=== PATIENT | male | born 1980 | race Caucasian/White ===

== ENCOUNTER 2024-03-25 12:35 | Emergency (ER) | payer BC, SELFPAY ==
--- NOTE | ~2024-03-25 | XR_ITS ---
EXAMINATION: XR chest 2V DATE: 03/25/2024 13:11 INDICATION: Chest discomfort TECHNIQUE: PA and lateral views of the chest were obtained. COMPARISON: None FINDINGS: The lungs are clear with no focal airspace opacities, pulmonary edema, pleural effusion or pneumothor ax. The cardiomediastinal silhouette is normal. Mild thoracic spondylosis. IMPRESSION: 1. No acute cardiopulmonary disease. Reviewed, dictated and finalized at location B.
--- NOTE | 2024-03-25 12:37 | ED.URI ---
HPI - URI/Sore Throat General Chief Complaint: Upper Respiratory Infection Stated Complaint: Sore Throat/Cough Source: patient and RN notes reviewed Mode of arrival: ambulatory Limitations: no limitations History of Present Illness HPI Narrative: Patient is a 44-year-old male who presents to the [facility] with complaints of right-sided throat pain and chest discomfort. Patient states that he had what possibly was a viral illness 3 weeks ago. He states that he experienced cough and congestion at that time. Denies any known fevers. Patient states that for the past couple weeks he has been dealing with right-sided throat pain. Patient also reports a chest discomfort that occurs on the right side of his chest only when he goes to sit down. He states that this pain is present at time. It is not present with an breathing or coughing, only with positioning and movement. He denies shortness of breath. His respirations are unlabored. He does not appear in any acute distress. Related Data Home Medications Medication Instructions Recorded Confirmed atorvastatin 10 mg tablet 10 mg PO DAILY 03/25/24 03/25/24 Review of Systems Review of Systems: CONSTITUTIONAL: Denies fever, chills, or sweats. EYES: Denies visual changes, redness, or discharge. ENT: Denies otalgia. Reports sore throat. CARDIOVASCULAR: Reports chest pain, but denies palpitations or edema. RESPIRATORY: Denies cough or dyspnea. GASTROINTESTINAL: Denies abdominal pain, nausea, vomiting, or diarrhea. GENITOURINARY: Denies dysuria or hematuria. SKIN: Denies rash or itching. MUSCULOSKELETAL: Denies back pain, joint pain, or myalgia. NEUROLOGIC: Denies headache, numbness, or weakness. Pertinent positives per HPI. PMFSH Comments At the time of my signature, I reviewed and agree with the nursing past medical, surgical, social, and family history. There is no relevant family history pertinent to the patient complaint. Exam Narrative: GENERAL: This is a well-nourished, well-developed patient, in no apparent distress. HEAD: normocephalic, atraumatic. EYES: Sclera clear/white. Vision is grossly intact. EARS: External ears normal, auditory canals clear and without drainage, TMs normal without perforation. Hearing grossly intact. NOSE: External nose normal with no obvious nasal discharge, nares without redness, no rhinorrhea. THROAT: Mucous membranes moist, Oropharyngeal erythema without exudate or ulceration. NECK: Neck supple, non-tender without lymphadenopathy, masses or thyromegaly. CARDIOVASCULAR: Regular rate and rhythm without murmurs, gallops, or rubs. RESPIRATORY: Clear to auscultation. Breath sounds equal bilaterally. No wheezes, rales, or rhonchi. GASTROINTESTINAL: Abdomen soft, non-tender, nondistended. Bowel sounds are active. No hepato-splenomegaly, or palpable masses. No guarding. SKIN: warm, intact with no suspicious lesions or rash, good texture and turgor. NEURO: awake, alert, and oriented to person, place and time. There were no obvious focal neurologic abnormalities. Course Course Level of Care: Express Care Visit Vital Signs Vital signs: Vital Signs Temperature 97.7 F 03/25/24 12:45 Pulse Rate 67 03/25/24 12:45 Respiratory Rate 16 03/25/24 12:45 Blood Pressure 128/75 03/25/24 12:45 Pulse Oximetry 98 03/25/24 12:45 Oxygen Delivery Room Air 03/25/24 12:45 Temperature 97.7 F 03/25/24 12:45 Pulse Rate 67 03/25/24 12:45 Respiratory Rate 16 03/25/24 12:45 Blood Pressure 128/75 03/25/24 12:45 Pulse Oximetry 98 03/25/24 12:45 Oxygen Delivery Room Air 03/25/24 12:45 Reviewed MDM - URI/Sore Throat MDM Narrative Medical decision making narrative: Take steroids as directed. Increase fluids at home. Avoid any and all smoke. May use a humidifier in the bedroom. Increase your Vitamin C. Follow-up with personal physician in 2-5 days. Go to ED immediately with worsening pain. Differential Diagnosis
[2024-03-25 12:45] VITALS: BP 128/75; PULSE 67; RESP 16; TEMP 36.5; O2SAT 98
== END 2024-03-25 13:26 | disposition home or self-care (01) ==
PROVIDERS: Emergency Provider Nurse Practitioner
DX: J20.8 Acute bronchitis due to other specified organisms (principal)
CPT/HCPCS: 71046; 87081; 87880; 99213; G0463

== ENCOUNTER 2024-04-05 09:20 | Emergency (ER) | payer BC, SELFPAY ==
[2024-04-05 09:36] VITALS: BP 116/71; PULSE 64; RESP 16; TEMP 36.6; O2SAT 98
[2024-04-05 09:37] VITALS: BP 116/71; PULSE 64; RESP 16; TEMP 36.6; O2SAT 98
--- NOTE | 2024-04-05 10:04 | ED.NECK ---
HPI - Neck Pain/Injury General Chief Complaint: Neck Pain/Injury Stated Complaint: Pain and Swelling in Lymph Nodes Time Seen by Provider: 04/05/24 10:04 Source: patient Mode of arrival: ambulatory Limitations: no limitations History of Present Illness HPI Narrative: 44-year-old male presents with complaint sore throat, swollen lymph nodes, neck pain. Symptoms for over a week. Was seen at [facility] for same symptoms and tested negative for strep. Was given prednisone with no relief of symptoms. Patient reports that neck pain is worse with movement, sore throat worse with swallowing and talking. Afebrile. States other than the pain he feels fine. All systems reviewed and negative except as noted above. Related Data Home Medications Medication Instructions Recorded Confirmed atorvastatin 10 mg tablet 10 mg PO DAILY 03/25/24 04/05/24 Allergies Allergy/AdvReac Type Severity Reaction Status Date / Time No Known Allergies Allergy Verified 04/05/24 09:36 Review of Systems Review of Systems: CONSTITUTIONAL: Denies fever, chills, or sweats. EYES: Denies visual changes, redness, or discharge. ENT: Denies rhinorrhea, congestion. Reports sore throat. Denies otalgia. CARDIOVASCULAR: Denies chest pain, palpitations, or edema. RESPIRATORY: Denies cough or dyspnea. GASTROINTESTINAL: Denies abdominal pain, nausea, vomiting, or diarrhea. GENITOURINARY: Denies dysuria or hematuria. SKIN: Denies rash or itching. MUSCULOSKELETAL: Denies back pain, joint pain, or myalgia. Reports anterior neck pain. NEUROLOGIC: Denies headache, numbness, or weakness. PSYCHIATRIC: Denies anxiety or depression. All other systems reviewed are negative, except as documented in HPI. PMFSH Comments At time of signature, agree with nursing past medical, surgical, social and family history. There is no relevant family history pertinent to the presenting complaint. Exam Narrative: GENERAL: This is a well-nourished, well-developed patient, in no apparent distress. HEAD: normocephalic, atraumatic. EYES: PERRL. Sclera clear/white. Vision is grossly intact. EARS: External ears normal, auditory canals clear and without drainage, TMs normal without perforation. Hearing grossly intact. NOSE: External nose normal with no obvious nasal discharge, nares without redness, no rhinorrhea. THROAT: Mucous membranes moist, posterior pharynx clear. NECK: Neck supple, with tender anterior cervical lymphadenopathy. No masses or thyromegaly. CARDIOVASCULAR: Regular rate and rhythm without murmurs, gallops, or rubs. RESPIRATORY: Clear to auscultation. Breath sounds equal bilaterally. No wheezes, rales, or rhonchi. GASTROINTESTINAL: Abdomen soft, non-tender, nondistended. Bowel sounds are active. No hepato-splenomegaly, or palpable masses. No guarding. SKIN: warm, Dry, intact with no suspicious lesions or rash, good texture and turgor. NEURO: awake, alert, and oriented to person, place and time. There were no obvious focal neurologic abnormalities. EXTREMITIES: No joint tenderness, effusion, or edema noted. No calf tenderness. Negative Homans sign bilaterally. BACK: Nontender without deformity. No CVA tenderness. Course Course Level of Care: Express Care Visit Vital Signs Vital signs: Vital Signs Temperature 36.6 C 04/05/24 09:36 Pulse Rate 64 04/05/24 09:36 Respiratory Rate 16 04/05/24 09:36 Blood Pressure 116/71 04/05/24 09:36 Pulse Oximetry 98 04/05/24 09:36 Temperature 36.6 C 04/05/24 09:37 Pulse Rate 64 04/05/24 09:37 Respiratory Rate 16 04/05/24 09:37 Blood Pressure 116/71 04/05/24 09:37 Pulse Oximetry 98 04/05/24 09:37 Reviewed MDM - Neck Pain/Injury MDM Narrative Medical decision making narrative: Patient is aware of diagnosis, understands and agrees to treatment plan. Anticipatory guidance given. Patient agrees to follow-up as directed and is aware of reasons to seek care at the emergency department.
== END 2024-04-05 10:27 | disposition home or self-care (01) ==
PROVIDERS: Emergency Provider Nurse Practitioner Family; PCP Family Medicine
DX: R07.0 Pain in throat (principal); R59.1 Generalized enlarged lymph nodes; E78.00 Pure hypercholesterolemia, unspecified
CPT/HCPCS: 36416; 86308; 87070; 99213; G0463

== ENCOUNTER 2024-04-23 08:22 | Outpatient (CLI) | payer BC, SELFPAY ==
--- NOTE | ~2024-04-23 | US_ITS ---
EXAMINATION: US soft tissue chest DATE: 04/23/2024 09:24 INDICATION: Right chest wall mass TECHNIQUE: Multiple grayscale and Doppler ultrasound images of the anterior right upper chest wall we re obtained. COMPARISON: None FINDINGS: There is focal thickening with posterior acoustic shadowing left foot appears to be a torn and retrac erica right pectoralis major tendon with some fatty atrophy of the distal muscle belly along the myoten dinous junction. No other abnormal masses or fluid collections identified. IMPRESSION: 1. Palpable mass of concern appears to correspond to a thickened and retracted at least partially tor n right pectoralis major tendon. Correlate for history of prior trauma and could consider further lacey luation with MRI as clinically indicated. Reviewed, dictated and finalized at location A. IMPRESSION: 1. Palpable mass of concern appears to correspond to a thickened and retracted at least partially torn right pectoralis major tendon. Correlate for history of prior trauma and could consider further evaluation with MRI as clinically stas cated.
== END 2024-04-23 08:23 | disposition home or self-care (01) ==
PROVIDERS: PCP Family Medicine; Visit Provider Family Medicine
DX: R22.2 Localized swelling, mass and lump, trunk (principal)
CPT/HCPCS: 76604